=== PATIENT | female | born 1945 | race Caucasian/White ===

== ENCOUNTER 2016-06-05 07:02 | Day surgery (SDC) | payer MEDICARE, OTHER ==
[~2016-06-05 07:02] MED LIST: ASA5GR PO; ESTROGEN PATCH TOP; LIPITOR20 PO
[2016-06-05 08:02] LABS: BASOPHILS 0.6 %; BASOPHILS ABSOLUTE 0.04 10/3/uL (0.0-0.16); EOSINOPHILS 6.4 %; EOSINOPHILS ABSOLUTE 0.44 10/3/uL (0.0-0.53); HEMATOCRIT 40.5 % (36.0-48.0); HEMOGLOBIN 13.9 g/dL (12.0-16.0); IMMATURE GRANULOCYTES 0.1 %; IMMATURE GRANULOCYTES ABSOLUTE 0.01 10/3/uL (0.0-0.11); LYMPHOCYTES 40.1 %; LYMPHOCYTES ABSOLUTE 2.76 10/3/uL (0.67-4.30); MEAN CORPUS HGB CONC 34.3 g/dL (32.0-36.0); MEAN CORPUSCULAR VOLUME 87.5 fL (80-100); MEAN PLATELET VOLUME 9.4 fL (9.2-13.0); MONOCYTES ABSOLUTE 0.55 10/3/uL (0.21-1.20); NEUTROPHILS 44.8 %; NEUTROPHILS ABSOLUTE 3.09 10/3/uL (2.02-8.40); PLATELET COUNT 575 10/3/uL (150-400); RED CELL COUNT 4.63 10/6/uL (4.0-5.6); WHITE BLOOD CELLS 6.9 10/3/uL (4.5-10.5)
[2016-06-05 08:06] LABS: MANUAL DIFF NO %
[2016-06-05 08:11] LABS: RETICULOCYTE COUNT 1.6 % (0.5-2.5); RETICULOCYTE COUNT ABSOLUTE 73.2 10/3/uL (20.2-119.8)
== END 2016-06-05 16:20 | disposition home or self-care (01) ==
LOC: SDC 07:02
PROVIDERS: Pathology Cytopathology
PROC: 07DR3ZX Extraction of Iliac Bone Marrow, Percutaneous Approach, Diagnostic (ICD-10-PCS; principal; 2016-06-05 09:00)
DX: D47.3 Essential (hemorrhagic) thrombocythemia (principal); E78.5 Hyperlipidemia, unspecified; E78.00 Pure hypercholesterolemia, unspecified; H26.9 Unspecified cataract; Z88.2 Allergy status to sulfonamides; Z88.5 Allergy status to narcotic agent; Z79.82 Long term (current) use of aspirin; Z79.899 Other long term (current) drug therapy; Z87.891 Personal history of nicotine dependence; Z90.710 Acquired absence of both cervix and uterus; Z98.890 Other specified postprocedural states
CPT/HCPCS: 85025; 85045; 88305; 88311; 88313; 88360